=== PATIENT | female | born 1960 | race African-American/Black ===

== ENCOUNTER 2022-06-28 18:33 | Inpatient (IN) | payer MEDICARE, MEDICAID ==
[~2022-06-28] VITALS: Ht 167.6 cm; Wt 87.5 kg
[2022-06-28] MEDS ORDERED: SODIUM CHLORIDE 0.9% 1,000 ML IV ONE (19:30)
[2022-06-28 21:01] LABS: LYMPHOCYTES % 8.1 % (20.0-50.0); MEAN CORPUSCULAR HEMOGLOBIN 33.5 pg (28.0-32.0); MEAN PLATELET VOLUME 8.2 fl (7.4-10.4); MONOCYTES % 4.2 % (2.0-8.0); NEUTROPHILS % 87.7 % (40.0-76.0); PLATELET 129 x1000/uL (130-400); RED BLOOD CELL COUNT 1.54 mill/uL (4.2-5.4); RED CELL DISTRIBUTION WIDTH 28.2 % (11.6-14.6)
[2022-06-28 21:06] LABS: CHLORIDE 102 mEq/L (98-107)
[2022-06-28 21:10] LABS: INR 1.3; PROTHROMBIN TIME 13.9 sec (9.6-11.0)
[2022-06-28 21:29] LABS: HEMOGLOBIN. 5.2 g/dL (12.0-16.0)
[2022-06-28 21:46] LABS: PLATELET ESTIMATE SLIGHTLY DECREASED
[2022-06-29 08:31] LABS: CLARITY URINE CLEAR (CLEAR); COLOR URINE YELLOW (YELLOW); KETONES URINE TRACE (NEGATIVE); LEUKOCYTE ESTERASE URINE 2+ (NEGATIVE); NITRITE URINE NEGATIVE (NEGATIVE); OCCULT BLOOD URINE NEGATIVE (NEGATIVE); PROTEIN URINE NEGATIVE (NEGATIVE); SPECIFIC GRAVITY URINE 1.023 (1.005-1.030); UROBILINOGEN URINE 0.2 E.U./dL (0.2-1.0)
[2022-06-29] MEDS ORDERED: ONDANSETRON HCL 4MG/2ML INJ IV PRN (09:00)
[2022-06-29] MEDS ORDERED: PANTOPRAZOLE SODIUM 40 MG/VIAL IV SCH (10:45)
[2022-06-29] MEDS ORDERED: DIPHENHYDRAMINE 25MG CAPSULE PO PRN (11:15)
[2022-06-29] MEDS ORDERED: CEFTRIAXONE 1 G PREMIX 50 ML IV SCH (11:30)
[2022-06-29] MEDS: PANTOPRAZOLE SODIUM 40 MG/VIAL IV SCH ×2 (12:59→20:53)
[2022-06-29] MEDS ORDERED: LEVETIRACETAM 500MG PREMIX 100 ML IV SCH (13:00)
[2022-06-29 15:20] VITALS: BP 119/64
[2022-06-29 15:23] VITALS: BP 119/64
[2022-06-29] MEDS: DEXT 5%/0.9% NACL 1,000 ML IV SCH ×2 (16:00→22:53)
[2022-06-29 16:20] LABS: MEAN CORPUSCULAR HEMOGLOBIN 32.7 pg (28.0-32.0); MEAN CORPUSCULAR VOLUME 94.3 fL (81.0-99.0); PLATELET 113 x1000/uL (130-400); RED BLOOD CELL COUNT 1.74 mill/uL (4.2-5.4); RED CELL DISTRIBUTION WIDTH 22.8 % (11.6-14.6)
[2022-06-29 16:37] LABS: HEMATOCRIT. 16.4 % (36.0-48.0); HEMOGLOBIN. 5.7 g/dL (12.0-16.0)
[2022-06-29] MEDS: LEVETIRACETAM 500MG TABLET PO SCH ×2 (17:22→22:53)
[2022-06-29 17:46] LABS: PLATELET ESTIMATE DECREASED
[2022-06-29] MEDS ORDERED: FLUO90CA4 PO (17:48)
[2022-06-29] MEDS ORDERED: CARV6.2548 PO (17:48)
[2022-06-29] MEDS ORDERED: LEVE1000 PO (17:48)
[2022-06-29] MEDS ORDERED: PROC-1 PO (17:48)
[2022-06-29] MEDS ORDERED: RISP1SOL4 PO (17:48)
[2022-06-29] MEDS ORDERED: ASPI-1406 PO (17:48)
[2022-06-29] MEDS ORDERED: TUCA150T PO (17:48)
[2022-06-29] MEDS ORDERED: SIMV5TAB58 PO (17:48)
[2022-06-29 18:41] VITALS: BP 109/59
[2022-06-29 18:52] LABS: CHLORIDE 104 mEq/L (98-107)
[2022-06-29 18:56] LABS: TOTAL IRON BINDING CAPACITY 222 ug/dL (250-450)
[2022-06-29 18:58] VITALS: BP 108/62
[2022-06-29 20:00] VITALS: BP 108/61
[2022-06-30] VITALS (11 sets, daily range): BP systolic 98–120; BP diastolic 53–83
[2022-06-30] MEDS ORDERED: DEXT 5%/0.9% NACL 1,000 ML IV SCH (00:01)
[2022-06-30 00:51] LABS: HEMATOCRIT 19.1 % (36.0-48.0); HEMOGLOBIN 6.5 g/dL (12.0-16.0)
[2022-06-30 04:01] LABS: MEAN CORPUSCULAR HEMOGLOBIN 31.6 pg (28.0-32.0); MEAN CORPUSCULAR VOLUME 92.5 fL (81.0-99.0); MEAN PLATELET VOLUME 7.8 fl (7.4-10.4); PLATELET 102 x1000/uL (130-400); RED BLOOD CELL COUNT 1.97 mill/uL (4.2-5.4); RED CELL DISTRIBUTION WIDTH 18.9 % (11.6-14.6)
[2022-06-30 04:14] LABS: CHLORIDE 106 mEq/L (98-107)
[2022-06-30 04:17] LABS: INR 1.3; PROTHROMBIN TIME 13.8 sec (9.6-11.0)
[2022-06-30 04:19] LABS: HEMATOCRIT. 18.3 % (36.0-48.0); HEMOGLOBIN. 6.2 g/dL (12.0-16.0)
[2022-06-30 07:31] LABS: PLATELET ESTIMATE DECREASED
[2022-06-30] MEDS: PANTOPRAZOLE SODIUM 40 MG/VIAL IV SCH ×2 (08:54→20:33)
[2022-06-30] MEDS: FOLIC ACID 1MG TABLET PO SCH (08:56)
[2022-06-30] MEDS: LEVETIRACETAM 500MG TABLET PO SCH ×2 (08:56→20:28)
[2022-06-30 08:58] LABS: HEMATOCRIT 21.2 % (36.0-48.0); HEMOGLOBIN 7.2 g/dL (12.0-16.0)
[2022-06-30] MEDS: DEXT 5%/0.9% NACL 1,000 ML IV SCH ×2 (10:31→19:15)
[2022-06-30] MEDS ORDERED: MIDAZOLAM HCL 2 MG/2 ML VIAL ONE (12:36)
[2022-06-30] MEDS ORDERED: FENTANYL CITRATE/PF 50MCG/ML 2ML VIAL ONE (12:36)
[2022-06-30] MEDS ORDERED: CEFTRIAXONE 1,000 MG in DEXTROSE 5% WATER 50 ML IV SCH (15:00)
[2022-06-30] MEDS: SUCRALFATE 1G TABLET PO SCH ×2 (17:44→20:35)
[2022-06-30 21:25] LABS: HEMOGLOBIN 6.8 g/dL (12.0-16.0)
[2022-06-30 21:26] LABS: HEMATOCRIT 20.4 % (36.0-48.0)
[2022-07-01] VITALS (9 sets, daily range): BP systolic 106–129; BP diastolic 53–69
[2022-07-01] MEDS: DEXT 5%/0.9% NACL 1,000 ML IV SCH ×2 (04:50→14:59)
[2022-07-01] MEDS: FOLIC ACID 1MG TABLET PO SCH (09:16)
[2022-07-01] MEDS: LEVETIRACETAM 500MG TABLET PO SCH ×2 (09:16→20:00)
[2022-07-01] MEDS: SUCRALFATE 1G TABLET PO SCH ×4 (09:16→20:00)
[2022-07-01] MEDS: PANTOPRAZOLE SODIUM 40 MG/VIAL IV SCH ×2 (09:16→19:59)
[2022-07-01 10:25] LABS: HEMATOCRIT 24.3 % (36.0-48.0); HEMOGLOBIN 8.1 g/dL (12.0-16.0)
[2022-07-01] MEDS ORDERED: CEFTRIAXONE 1,000 MG in DEXTROSE 5% WATER 50 ML IV SCH (14:00)
[2022-07-01 19:54] LABS: HEMATOCRIT 27.6 % (36.0-48.0); HEMOGLOBIN 8.6 g/dL (12.0-16.0)
[2022-07-02] VITALS (9 sets, daily range): BP systolic 111–152; BP diastolic 63–76
[2022-07-02] MEDS: DEXT 5%/0.9% NACL 1,000 ML IV SCH ×3 (01:15→20:18)
[2022-07-02] MEDS: ACETAMINOPHEN 325MG TABLET PO PRN ×2 (01:29→19:39)
[2022-07-02 01:32] LABS: HEMOGLOBIN 7.1 g/dL (12.0-16.0)
[2022-07-02 07:33] LABS: MEAN CORPUSCULAR VOLUME 93.7 fL (81.0-99.0); MEAN PLATELET VOLUME 8.8 fl (7.4-10.4); PLATELET 61 x1000/uL (130-400); RED CELL DISTRIBUTION WIDTH 16.1 % (11.6-14.6)
[2022-07-02 08:00] LABS: CHLORIDE 109 mEq/L (98-107)
[2022-07-02 08:19] LABS: HEMATOCRIT. 20.6 % (36.0-48.0)
[2022-07-02] MEDS: PANTOPRAZOLE SODIUM 40 MG/VIAL IV SCH ×2 (10:08→20:02)
[2022-07-02] MEDS: FOLIC ACID 1MG TABLET PO SCH (10:09)
[2022-07-02] MEDS: LEVETIRACETAM 500MG TABLET PO SCH ×2 (10:09→20:02)
[2022-07-02] MEDS: SUCRALFATE 1G TABLET PO SCH ×4 (10:09→20:02)
[2022-07-02 10:37] LABS: PLATELET ESTIMATE DECREASED
[2022-07-02 11:36] LABS: HEMOGLOBIN 7.1 g/dL (12.0-16.0)
[2022-07-02 11:49] LABS: HEMATOCRIT 20.8 % (36.0-48.0)
[2022-07-02] MEDS: LEVOFLOXACIN 250MG TABLET PO SCH (13:27)
[2022-07-02] MEDS ORDERED: POTASSIUM CHLORIDE 20MEQ TABLET SR PO NR (14:15)
[2022-07-02 21:23] LABS: HEMATOCRIT 26.6 % (36.0-48.0); HEMOGLOBIN 9.1 g/dL (12.0-16.0)
[2022-07-03] VITALS: BP 153/79
[2022-07-03 04:00] VITALS: BP 149/74
[2022-07-03] MEDS: DEXT 5%/0.9% NACL 1,000 ML IV SCH ×2 (06:36→17:40)
[2022-07-03 06:57] LABS: BASOPHILS % 0.1 % (0.0-2.0); EOSINOPHILS % 0.1 % (0.0-5.0); HEMATOCRIT. 28.4 % (36.0-48.0); HEMOGLOBIN. 9.8 g/dL (12.0-16.0); LYMPHOCYTES % 8.4 % (20.0-50.0); MEAN CORPUSCULAR HEMOGLOBIN 31.5 pg (28.0-32.0); MEAN CORPUSCULAR VOLUME 91.3 fL (81.0-99.0); MEAN PLATELET VOLUME 8.7 fl (7.4-10.4); MONOCYTES % 6.8 % (2.0-8.0); NEUTROPHILS % 84.6 % (40.0-76.0); PLATELET 71 x1000/uL (130-400); RED BLOOD CELL COUNT 3.12 mill/uL (4.2-5.4); RED CELL DISTRIBUTION WIDTH 16.5 % (11.6-14.6)
[2022-07-03 07:22] LABS: CHLORIDE 109 mEq/L (98-107)
[2022-07-03 08:00] VITALS: BP 137/78
[2022-07-03] MEDS ORDERED: NON FORMULARY PATIENT HOME MED PO SCH ×2 (09:00)
[2022-07-03] MEDS: [UNRECOGNIZED DRUG - OTHER] PO SCH ×2 (09:00→20:26)
[2022-07-03] MEDS ORDERED: LEVETIRACETAM 500MG TABLET PO SCH (09:00)
[2022-07-03] MEDS: SUCRALFATE 1G TABLET PO SCH ×4 (09:34→20:24)
[2022-07-03] MEDS: LEVETIRACETAM 500MG TABLET PO SCH ×2 (09:34→20:25)
[2022-07-03] MEDS: PROCHLORPERAZINE MALEATE 10MG TABLET PO SCH (09:34)
[2022-07-03] MEDS: PANTOPRAZOLE SODIUM 40 MG/VIAL IV SCH ×2 (09:34→20:26)
[2022-07-03] MEDS: RISPERIDONE 1MG TABLET PO SCH (09:35)
[2022-07-03] MEDS: FOLIC ACID 1MG TABLET PO SCH (09:35)
[2022-07-03] MEDS: FLUOXETINE HCL 10 MG CAPSULE PO SCH (09:35)
[2022-07-03] MEDS: CARVEDILOL 6.25 MG TABLET PO SCH ×2 (09:35→20:25)
[2022-07-03] MEDS: ASPIRIN 81MG TABLET PO SCH (09:36)
[2022-07-03] MEDS ORDERED: POTASSIUM CHLORIDE 20MEQ TABLET SR PO NR (10:30)
[2022-07-03] MEDS: LEVOFLOXACIN 250MG TABLET PO SCH (10:54)
[2022-07-03 12:00] VITALS: BP 166/91
[2022-07-03 16:00] VITALS: BP 155/89
[2022-07-03 20:00] VITALS: BP 145/90
[2022-07-03] MEDS: ATORVASTATIN CALCIUM 10MG TABLET PO SCH (20:24)
[2022-07-04 00:06] VITALS: BP 154/83
[2022-07-04 04:00] VITALS: BP 147/79
[2022-07-04] MEDS: DEXT 5%/0.9% NACL 1,000 ML IV SCH ×2 (05:14→13:15)
[2022-07-04 06:55] LABS: BASOPHILS % 0.2 % (0.0-2.0); EOSINOPHILS % 0.1 % (0.0-5.0); HEMATOCRIT. 26.8 % (36.0-48.0); HEMOGLOBIN. 9.3 g/dL (12.0-16.0); LYMPHOCYTES % 10.6 % (20.0-50.0); MEAN CORPUSCULAR HEMOGLOBIN 31.8 pg (28.0-32.0); MEAN CORPUSCULAR VOLUME 91.4 fL (81.0-99.0); MEAN PLATELET VOLUME 8.3 fl (7.4-10.4); MONOCYTES % 10.6 % (2.0-8.0); NEUTROPHILS % 78.5 % (40.0-76.0); PLATELET 90 x1000/uL (130-400); RED BLOOD CELL COUNT 2.93 mill/uL (4.2-5.4); RED CELL DISTRIBUTION WIDTH 16.9 % (11.6-14.6)
[2022-07-04 08:00] VITALS: BP 148/77
[2022-07-04] MEDS: PANTOPRAZOLE SODIUM 40 MG/VIAL IV SCH ×2 (08:56→20:22)
[2022-07-04] MEDS: ASPIRIN 81MG TABLET PO SCH (08:56)
[2022-07-04] MEDS: CARVEDILOL 6.25 MG TABLET PO SCH ×2 (08:56→20:23)
[2022-07-04] MEDS: RISPERIDONE 1MG TABLET PO SCH (08:56)
[2022-07-04] MEDS: PROCHLORPERAZINE MALEATE 10MG TABLET PO SCH (08:56)
[2022-07-04] MEDS: FOLIC ACID 1MG TABLET PO SCH (08:56)
[2022-07-04] MEDS: SUCRALFATE 1G TABLET PO SCH ×4 (08:56→20:23)
[2022-07-04] MEDS: FLUOXETINE HCL 10 MG CAPSULE PO SCH (08:56)
[2022-07-04] MEDS: LEVETIRACETAM 500MG TABLET PO SCH ×2 (08:56→20:22)
[2022-07-04] MEDS: [UNRECOGNIZED DRUG - OTHER] PO SCH ×2 (08:57→20:24)
[2022-07-04 10:27] LABS: CHLORIDE 111 mEq/L (98-107)
[2022-07-04 12:00] VITALS: BP 154/86
[2022-07-04] MEDS: LEVOFLOXACIN 250MG TABLET PO SCH (13:22)
[2022-07-04] MEDS ORDERED: POTASSIUM CHLORIDE 20MEQ TABLET SR PO NR (15:45)
[2022-07-04 16:00] VITALS: BP 143/79
[2022-07-04 20:00] VITALS: BP 147/73
[2022-07-04] MEDS: ATORVASTATIN CALCIUM 10MG TABLET PO SCH (20:23)
[2022-07-05] VITALS: BP 135/67
[2022-07-05] MEDS: DEXT 5%/0.9% NACL 1,000 ML IV SCH ×3 (00:18→20:24)
[2022-07-05 04:00] VITALS: BP 144/73
[2022-07-05 07:20] LABS: BASOPHILS % 0.3 % (0.0-2.0); EOSINOPHILS % 0.2 % (0.0-5.0); HEMATOCRIT. 24.7 % (36.0-48.0); HEMOGLOBIN. 8.5 g/dL (12.0-16.0); LYMPHOCYTES % 13.3 % (20.0-50.0); MEAN CORPUSCULAR HEMOGLOBIN 31.6 pg (28.0-32.0); MEAN CORPUSCULAR VOLUME 92.2 fL (81.0-99.0); MEAN PLATELET VOLUME 7.9 fl (7.4-10.4); NEUTROPHILS % 74.2 % (40.0-76.0); PLATELET 90 x1000/uL (130-400); RED BLOOD CELL COUNT 2.68 mill/uL (4.2-5.4); RED CELL DISTRIBUTION WIDTH 17.1 % (11.6-14.6)
[2022-07-05 07:53] LABS: CHLORIDE 110 mEq/L (98-107)
[2022-07-05 08:00] VITALS: BP 153/60
[2022-07-05] MEDS: PANTOPRAZOLE SODIUM 40 MG/VIAL IV SCH ×2 (09:14→20:25)
[2022-07-05] MEDS: SUCRALFATE 1G TABLET PO SCH ×4 (09:18→20:25)
[2022-07-05] MEDS: RISPERIDONE 1MG TABLET PO SCH (09:18)
[2022-07-05] MEDS: FLUOXETINE HCL 10 MG CAPSULE PO SCH (09:18)
[2022-07-05] MEDS: FOLIC ACID 1MG TABLET PO SCH (09:18)
[2022-07-05] MEDS: LEVETIRACETAM 500MG TABLET PO SCH ×2 (09:18→20:25)
[2022-07-05] MEDS: PROCHLORPERAZINE MALEATE 10MG TABLET PO SCH (09:18)
[2022-07-05] MEDS: ASPIRIN 81MG TABLET PO SCH (09:19)
[2022-07-05] MEDS: CARVEDILOL 6.25 MG TABLET PO SCH ×2 (09:19→20:25)
[2022-07-05] MEDS: [UNRECOGNIZED DRUG - OTHER] PO SCH ×2 (09:19→20:25)
[2022-07-05 12:00] VITALS: BP 134/67
[2022-07-05] MEDS: LEVOFLOXACIN 250MG TABLET PO SCH (13:37)
[2022-07-05 16:00] VITALS: BP 151/69
[2022-07-05 20:00] VITALS: BP 142/89
[2022-07-05] MEDS: ATORVASTATIN CALCIUM 10MG TABLET PO SCH (20:25)
[2022-07-06] VITALS: BP 151/80
[2022-07-06 04:00] VITALS: BP 150/79
[2022-07-06] MEDS: DEXT 5%/0.9% NACL 1,000 ML IV SCH ×2 (05:34→15:27)
[2022-07-06 06:41] LABS: BASOPHILS % 0.3 % (0.0-2.0); EOSINOPHILS % 0.4 % (0.0-5.0); HEMATOCRIT. 26.7 % (36.0-48.0); HEMOGLOBIN. 9.1 g/dL (12.0-16.0); LYMPHOCYTES % 9.8 % (20.0-50.0); MEAN CORPUSCULAR HEMOGLOBIN 31.8 pg (28.0-32.0); MEAN CORPUSCULAR VOLUME 93.4 fL (81.0-99.0); MEAN PLATELET VOLUME 8.1 fl (7.4-10.4); MONOCYTES % 11.4 % (2.0-8.0); NEUTROPHILS % 78.1 % (40.0-76.0); PLATELET 96 x1000/uL (130-400); RED BLOOD CELL COUNT 2.86 mill/uL (4.2-5.4); RED CELL DISTRIBUTION WIDTH 17.1 % (11.6-14.6)
[2022-07-06 06:43] LABS: INR 1.3; PARTIAL THROMBOPLASTIN TIME 22.6 sec (23.4-31.0); PROTHROMBIN TIME 13.7 sec (9.6-11.0)
[2022-07-06 07:15] LABS: CHLORIDE 115 mEq/L (98-107)
[2022-07-06 08:00] VITALS: BP 130/79
[2022-07-06] MEDS: PROCHLORPERAZINE MALEATE 10MG TABLET PO SCH (08:37)
[2022-07-06] MEDS: LEVETIRACETAM 500MG TABLET PO SCH ×2 (08:37→22:35)
[2022-07-06] MEDS: PANTOPRAZOLE SODIUM 40 MG/VIAL IV SCH ×2 (08:37→22:34)
[2022-07-06] MEDS: FLUOXETINE HCL 10 MG CAPSULE PO SCH (08:37)
[2022-07-06] MEDS: SUCRALFATE 1G TABLET PO SCH ×4 (08:38→22:36)
[2022-07-06] MEDS: RISPERIDONE 1MG TABLET PO SCH (08:38)
[2022-07-06] MEDS: FOLIC ACID 1MG TABLET PO SCH (08:41)
[2022-07-06] MEDS: CARVEDILOL 6.25 MG TABLET PO SCH ×2 (08:44→22:35)
[2022-07-06] MEDS: [UNRECOGNIZED DRUG - OTHER] PO SCH ×2 (08:48→22:35)
[2022-07-06] MEDS ORDERED: PROPOFOL 200MG/20ML VIAL IV ONE (11:48)
[2022-07-06] MEDS ORDERED: LEVOFLOXACIN 500MG PREMIX 100 ML IV ONE (11:52)
[2022-07-06] MEDS ORDERED: ONDANSETRON HCL 4MG/2ML INJ ONE (12:03)
[2022-07-06] MEDS ORDERED: DEXAMETHASONE 4MG/ML 1ML VIAL ONE (12:03)
[2022-07-06 13:00] VITALS: BP 135/80
[2022-07-06] MEDS: LEVOFLOXACIN 250MG TABLET PO SCH (14:00)
[2022-07-06 20:00] VITALS: BP 110/59
[2022-07-06] MEDS: ATORVASTATIN CALCIUM 10MG TABLET PO SCH (22:35)
[2022-07-07] VITALS: BP 121/68
[2022-07-07] MEDS: DEXT 5%/0.9% NACL 1,000 ML IV SCH ×3 (02:45→21:15)
[2022-07-07 04:00] VITALS: BP 137/76
[2022-07-07 08:00] VITALS: BP 129/79
[2022-07-07] MEDS ORDERED: LIDOCAINE HCL 1% 10 MG/ML 10ML VIAL ONE (09:01)
[2022-07-07] MEDS: PANTOPRAZOLE SODIUM 40 MG/VIAL IV SCH ×2 (10:05→21:04)
[2022-07-07] MEDS: LEVETIRACETAM 500MG TABLET PO SCH ×2 (10:05→21:03)
[2022-07-07] MEDS: [UNRECOGNIZED DRUG - OTHER] PO SCH ×2 (10:05→21:05)
[2022-07-07] MEDS: SUCRALFATE 1G TABLET PO SCH ×4 (10:05→21:04)
[2022-07-07] MEDS: CARVEDILOL 6.25 MG TABLET PO SCH ×2 (10:05→21:04)
[2022-07-07] MEDS: FOLIC ACID 1MG TABLET PO SCH (10:05)
[2022-07-07] MEDS: FLUOXETINE HCL 10 MG CAPSULE PO SCH (10:05)
[2022-07-07] MEDS: RISPERIDONE 1MG TABLET PO SCH (10:06)
[2022-07-07 12:00] VITALS: BP 167/83
[2022-07-07] MEDS: ACETAMINOPHEN 325MG TABLET PO PRN (12:57)
[2022-07-07] MEDS: LEVOFLOXACIN 250MG TABLET PO SCH (12:57)
[2022-07-07 16:00] VITALS: BP 138/72
[2022-07-07 20:00] VITALS: BP 105/69
[2022-07-07] MEDS: ATORVASTATIN CALCIUM 10MG TABLET PO SCH (21:04)
[2022-07-08] VITALS: BP 129/75
[2022-07-08] MEDS: DEXT 5%/0.9% NACL 1,000 ML IV SCH ×2 (07:15→17:15)
[2022-07-08] MEDS: SUCRALFATE 1G TABLET PO SCH ×4 (07:20→20:57)
[2022-07-08] MEDS: [UNRECOGNIZED DRUG - OTHER] PO SCH ×2 (09:00→21:06)
[2022-07-08] MEDS: RISPERIDONE 1MG TABLET PO SCH (09:00)
[2022-07-08] MEDS: CARVEDILOL 6.25 MG TABLET PO SCH ×2 (09:00→21:03)
[2022-07-08] MEDS: FLUOXETINE HCL 10 MG CAPSULE PO SCH (09:00)
[2022-07-08] MEDS: LEVETIRACETAM 500MG TABLET PO SCH ×2 (09:00→20:57)
[2022-07-08] MEDS: FOLIC ACID 1MG TABLET PO SCH (09:00)
[2022-07-08] MEDS: PANTOPRAZOLE SODIUM 40 MG/VIAL IV SCH ×2 (09:00→21:07)
[2022-07-08 09:10] LABS: BASOPHILS % 0.1 % (0.0-2.0); EOSINOPHILS % 0.1 % (0.0-5.0); HEMATOCRIT. 27.6 % (36.0-48.0); HEMOGLOBIN. 9.4 g/dL (12.0-16.0); LYMPHOCYTES % 8.8 % (20.0-50.0); MEAN CORPUSCULAR HEMOGLOBIN 31.6 pg (28.0-32.0); MEAN CORPUSCULAR VOLUME 92.8 fL (81.0-99.0); MEAN PLATELET VOLUME 8.3 fl (7.4-10.4); MONOCYTES % 8.5 % (2.0-8.0); NEUTROPHILS % 82.5 % (40.0-76.0); PLATELET 114 x1000/uL (130-400); RED BLOOD CELL COUNT 2.97 mill/uL (4.2-5.4); RED CELL DISTRIBUTION WIDTH 19.8 % (11.6-14.6)
[2022-07-08 09:33] LABS: CHLORIDE 113 mEq/L (98-107)
[2022-07-08] MEDS ORDERED: POTASSIUM CHLORIDE INJ 40 MEQ in DEXT 5% WATER 250 ML IV ONE (10:00)
[2022-07-08] MEDS ORDERED: POTASSIUM CHLORIDE 20MEQ TABLET SR PO NR ×2 (10:00→13:00)
[2022-07-08] MEDS ORDERED: KCL 20MEQ/100ML X 2 FOR TOTAL KCL 40MEQ/200ML IV SCH (11:00)
[2022-07-08] MEDS: ACETAMINOPHEN 325MG TABLET PO PRN (16:55)
[2022-07-08 20:00] VITALS: BP 124/74
[2022-07-08] MEDS: ATORVASTATIN CALCIUM 10MG TABLET PO SCH (21:04)
[2022-07-09] VITALS: BP 137/70
[2022-07-09] MEDS: DEXT 5%/0.9% NACL 1,000 ML IV SCH ×3 (03:15→23:05)
[2022-07-09 04:00] VITALS: BP 143/69
[2022-07-09 07:31] LABS: BASOPHILS % 0.3 % (0.0-2.0); EOSINOPHILS % 0.4 % (0.0-5.0); HEMATOCRIT. 25.5 % (36.0-48.0); HEMOGLOBIN. 8.8 g/dL (12.0-16.0); LYMPHOCYTES % 9.9 % (20.0-50.0); MEAN CORPUSCULAR HEMOGLOBIN 31.7 pg (28.0-32.0); MEAN CORPUSCULAR VOLUME 92.5 fL (81.0-99.0); MEAN PLATELET VOLUME 8.4 fl (7.4-10.4); MONOCYTES % 10.6 % (2.0-8.0); NEUTROPHILS % 78.8 % (40.0-76.0); PLATELET 100 x1000/uL (130-400); RED BLOOD CELL COUNT 2.76 mill/uL (4.2-5.4); RED CELL DISTRIBUTION WIDTH 19.8 % (11.6-14.6)
[2022-07-09 07:33] LABS: CHLORIDE 118 mEq/L (98-107)
[2022-07-09 08:00] VITALS: BP 136/63
[2022-07-09] MEDS ORDERED: POTASSIUM CHLORIDE 20MEQ TABLET SR PO NR ×2 (08:15→12:00)
[2022-07-09] MEDS: PROCHLORPERAZINE MALEATE 10MG TABLET PO SCH ×2 (09:00→10:07)
[2022-07-09] MEDS: FOLIC ACID 1MG TABLET PO SCH (09:00)
[2022-07-09] MEDS: SUCRALFATE 1G TABLET PO SCH ×4 (10:08→22:03)
[2022-07-09] MEDS: PANTOPRAZOLE SODIUM 40 MG/VIAL IV SCH ×2 (10:09→22:02)
[2022-07-09] MEDS: CARVEDILOL 6.25 MG TABLET PO SCH ×2 (10:09→22:04)
[2022-07-09] MEDS: FLUOXETINE HCL 10 MG CAPSULE PO SCH (10:11)
[2022-07-09] MEDS: LEVETIRACETAM 500MG TABLET PO SCH ×2 (10:11→22:03)
[2022-07-09] MEDS: [UNRECOGNIZED DRUG - OTHER] PO SCH ×2 (10:11→21:00)
[2022-07-09] MEDS: ACETAMINOPHEN 325MG TABLET PO PRN ×2 (10:12→19:11)
[2022-07-09] MEDS: RISPERIDONE 1MG TABLET PO SCH (10:12)
[2022-07-09 12:00] VITALS: BP 174/70
[2022-07-09 16:00] VITALS: BP 112/57
[2022-07-09 20:00] VITALS: BP 126/66
[2022-07-09] MEDS: ATORVASTATIN CALCIUM 10MG TABLET PO SCH (22:03)
[2022-07-10] VITALS: BP 121/62
[2022-07-10 04:00] VITALS: BP 118/62
[2022-07-10 08:00] VITALS: BP 137/73
[2022-07-10] MEDS: [UNRECOGNIZED DRUG - OTHER] PO SCH ×2 (09:00→21:00)
[2022-07-10] MEDS: DEXT 5%/0.9% NACL 1,000 ML IV SCH ×2 (09:15→19:15)
[2022-07-10] MEDS: PROCHLORPERAZINE MALEATE 10MG TABLET PO SCH (10:39)
[2022-07-10] MEDS: SUCRALFATE 1G TABLET PO SCH ×4 (10:39→22:09)
[2022-07-10] MEDS: PANTOPRAZOLE SODIUM 40 MG/VIAL IV SCH ×2 (10:39→22:08)
[2022-07-10] MEDS: FOLIC ACID 1MG TABLET PO SCH (10:40)
[2022-07-10] MEDS: CARVEDILOL 6.25 MG TABLET PO SCH ×2 (10:40→22:12)
[2022-07-10] MEDS: LEVETIRACETAM 500MG TABLET PO SCH ×2 (10:40→22:09)
[2022-07-10] MEDS: DEXAMETHASONE 4MG TABLET PO SCH (10:40)
[2022-07-10] MEDS: ACETAMINOPHEN 325MG TABLET PO PRN (10:42)
[2022-07-10] MEDS: RISPERIDONE 1MG TABLET PO SCH (10:42)
[2022-07-10] MEDS: FLUOXETINE HCL 10 MG CAPSULE PO SCH (10:42)
[2022-07-10 12:00] VITALS: BP 119/66
[2022-07-10 14:38] LABS: BASOPHILS % 0.4 % (0.0-2.0); EOSINOPHILS % 0.3 % (0.0-5.0); HEMATOCRIT. 26.2 % (36.0-48.0); HEMOGLOBIN. 8.8 g/dL (12.0-16.0); MEAN CORPUSCULAR HEMOGLOBIN 31.2 pg (28.0-32.0); MEAN CORPUSCULAR VOLUME 92.7 fL (81.0-99.0); MEAN PLATELET VOLUME 8.2 fl (7.4-10.4); MONOCYTES % 13.6 % (2.0-8.0); NEUTROPHILS % 72.7 % (40.0-76.0); PLATELET 98 x1000/uL (130-400); RED BLOOD CELL COUNT 2.82 mill/uL (4.2-5.4); RED CELL DISTRIBUTION WIDTH 20.7 % (11.6-14.6)
[2022-07-10 14:40] LABS: CHLORIDE 108 mEq/L (98-107)
[2022-07-10 16:00] VITALS: BP 124/66
[2022-07-10 20:00] VITALS: BP 151/79
[2022-07-10] MEDS: ATORVASTATIN CALCIUM 10MG TABLET PO SCH (22:10)
[2022-07-11] VITALS (8 sets, daily range): BP systolic 112–143; BP diastolic 56–77
[2022-07-11] MEDS: DEXT 5%/0.9% NACL 1,000 ML IV SCH ×2 (05:02→15:32)
[2022-07-11] MEDS: FOLIC ACID 1MG TABLET PO SCH (08:35)
[2022-07-11] MEDS: LEVETIRACETAM 500MG TABLET PO SCH ×2 (08:35→22:34)
[2022-07-11] MEDS: RISPERIDONE 1MG TABLET PO SCH (08:35)
[2022-07-11] MEDS: PROCHLORPERAZINE MALEATE 10MG TABLET PO SCH (08:35)
[2022-07-11] MEDS: DEXAMETHASONE 4MG TABLET PO SCH (08:36)
[2022-07-11] MEDS: SUCRALFATE 1G TABLET PO SCH ×4 (08:36→22:34)
[2022-07-11] MEDS: CARVEDILOL 6.25 MG TABLET PO SCH ×2 (08:36→22:34)
[2022-07-11] MEDS: FLUOXETINE HCL 10 MG CAPSULE PO SCH (08:36)
[2022-07-11] MEDS: PANTOPRAZOLE SODIUM 40 MG/VIAL IV SCH ×2 (08:37→22:34)
[2022-07-11] MEDS: [UNRECOGNIZED DRUG - OTHER] PO SCH ×2 (08:39→21:00)
[2022-07-11] MEDS ORDERED: POTASSIUM CHLORIDE 20MEQ TABLET SR PO NR (15:00)
[2022-07-11] MEDS: ATORVASTATIN CALCIUM 10MG TABLET PO SCH (22:34)
[2022-07-12] VITALS: BP 145/72
[2022-07-12] MEDS: DEXT 5%/0.9% NACL 1,000 ML IV SCH ×3 (00:30→21:39)
[2022-07-12 04:00] VITALS: BP 142/73
[2022-07-12 08:00] VITALS: BP 140/74
[2022-07-12] MEDS: PROCHLORPERAZINE MALEATE 10MG TABLET PO SCH (09:00)
[2022-07-12] MEDS: [UNRECOGNIZED DRUG - OTHER] PO SCH ×2 (09:00→21:49)
[2022-07-12] MEDS: DEXAMETHASONE 4MG TABLET PO SCH (10:46)
[2022-07-12] MEDS: LEVETIRACETAM 500MG TABLET PO SCH ×2 (10:47→21:38)
[2022-07-12] MEDS: PANTOPRAZOLE SODIUM 40 MG/VIAL IV SCH ×2 (10:47→21:38)
[2022-07-12] MEDS: RISPERIDONE 1MG TABLET PO SCH (10:47)
[2022-07-12] MEDS: FOLIC ACID 1MG TABLET PO SCH (10:47)
[2022-07-12] MEDS: CARVEDILOL 6.25 MG TABLET PO SCH ×2 (10:47→21:38)
[2022-07-12] MEDS: FLUOXETINE HCL 10 MG CAPSULE PO SCH (10:48)
[2022-07-12 12:00] VITALS: BP 124/67
[2022-07-12] MEDS: SUCRALFATE 1G TABLET PO SCH ×3 (12:20→21:38)
[2022-07-12 16:00] VITALS: BP 137/71
[2022-07-12 20:00] VITALS: BP 167/81
[2022-07-12] MEDS: ATORVASTATIN CALCIUM 10MG TABLET PO SCH (21:38)
[2022-07-12] MEDS ORDERED: FUROSEMIDE 20MG/2ML VIAL IVP NR (22:00)
[2022-07-13] VITALS: BP 139/77
[2022-07-13 04:00] VITALS: BP 145/77
[2022-07-13] MEDS: DEXT 5%/0.9% NACL 1,000 ML IV SCH (06:54)
[2022-07-13] MEDS: SUCRALFATE 1G TABLET PO SCH ×4 (06:54→22:04)
[2022-07-13 08:00] VITALS: BP 124/67
[2022-07-13] MEDS: CARVEDILOL 6.25 MG TABLET PO SCH ×2 (08:45→22:04)
[2022-07-13] MEDS: PROCHLORPERAZINE MALEATE 10MG TABLET PO SCH (08:45)
[2022-07-13] MEDS: PANTOPRAZOLE SODIUM 40 MG/VIAL IV SCH ×2 (08:45→22:26)
[2022-07-13] MEDS: [UNRECOGNIZED DRUG - OTHER] PO SCH ×2 (08:46→22:25)
[2022-07-13] MEDS: DEXAMETHASONE 4MG TABLET PO SCH (08:46)
[2022-07-13] MEDS: FLUOXETINE HCL 10 MG CAPSULE PO SCH (08:46)
[2022-07-13] MEDS: LEVETIRACETAM 500MG TABLET PO SCH ×2 (08:46→22:05)
[2022-07-13] MEDS: FOLIC ACID 1MG TABLET PO SCH (08:46)
[2022-07-13] MEDS: RISPERIDONE 1MG TABLET PO SCH (08:46)
[2022-07-13 12:00] VITALS: BP 145/73
[2022-07-13 16:00] VITALS: BP 126/67
[2022-07-13 16:02] LABS: HEMATOCRIT. 25.3 % (36.0-48.0); HEMOGLOBIN. 8.6 g/dL (12.0-16.0); MEAN CORPUSCULAR HEMOGLOBIN 32.7 pg (28.0-32.0); MEAN CORPUSCULAR VOLUME 96.5 fL (81.0-99.0); MEAN PLATELET VOLUME 8.3 fl (7.4-10.4); PLATELET 148 x1000/uL (130-400); RED BLOOD CELL COUNT 2.62 mill/uL (4.2-5.4); RED CELL DISTRIBUTION WIDTH 19.9 % (11.6-14.6)
[2022-07-13 17:40] LABS: CHLORIDE 104 mEq/L (98-107)
[2022-07-13 18:00] LABS: PLATELET ESTIMATE NORMAL
[2022-07-13 20:00] VITALS: BP 146/79
[2022-07-13] MEDS: ATORVASTATIN CALCIUM 10MG TABLET PO SCH (22:05)
[2022-07-14] VITALS: BP 155/81
[2022-07-14 04:00] VITALS: BP 143/81
[2022-07-14] MEDS: SUCRALFATE 1G TABLET PO SCH ×4 (06:34→22:12)
[2022-07-14 08:00] VITALS: BP 129/69
[2022-07-14] MEDS: [UNRECOGNIZED DRUG - OTHER] PO SCH ×2 (09:00→22:13)
[2022-07-14 12:00] VITALS: BP 130/60
[2022-07-14] MEDS: PANTOPRAZOLE SODIUM 40 MG/VIAL IV SCH ×2 (13:36→22:12)
[2022-07-14] MEDS: PROCHLORPERAZINE MALEATE 10MG TABLET PO SCH (13:36)
[2022-07-14] MEDS: LEVETIRACETAM 500MG TABLET PO SCH ×2 (13:37→22:10)
[2022-07-14] MEDS: FOLIC ACID 1MG TABLET PO SCH (13:37)
[2022-07-14] MEDS: CARVEDILOL 6.25 MG TABLET PO SCH ×2 (13:37→22:11)
[2022-07-14] MEDS: DEXAMETHASONE 4MG TABLET PO SCH (13:38)
[2022-07-14] MEDS: FLUOXETINE HCL 10 MG CAPSULE PO SCH (13:38)
[2022-07-14] MEDS: RISPERIDONE 1MG TABLET PO SCH (13:38)
[2022-07-14 16:00] VITALS: BP 135/71
[2022-07-14] MEDS ORDERED: GADOTERATE MEGLUMINE 5 MMOL/10 ML VIAL IV ONE (19:46)
[2022-07-14 20:00] VITALS: BP 145/77
[2022-07-14] MEDS: ATORVASTATIN CALCIUM 10MG TABLET PO SCH (22:10)
[2022-07-15 04:00] VITALS: BP 142/88
[2022-07-15] MEDS: SUCRALFATE 1G TABLET PO SCH (05:56)
[2022-07-15 08:00] VITALS: BP 162/84
[2022-07-15 08:09] VITALS: BP 145/88
[2022-07-15 09:07] LABS: HEMATOCRIT. 25.7 % (36.0-48.0); HEMOGLOBIN. 8.9 g/dL (12.0-16.0); MEAN CORPUSCULAR HEMOGLOBIN 31.8 pg (28.0-32.0); MEAN CORPUSCULAR VOLUME 91.9 fL (81.0-99.0); MEAN PLATELET VOLUME 8.4 fl (7.4-10.4); PLATELET 181 x1000/uL (130-400); RED CELL DISTRIBUTION WIDTH 20.1 % (11.6-14.6)
[2022-07-15 09:34] LABS: CHLORIDE 101 mEq/L (98-107)
[2022-07-15 14:59] LABS: PLATELET ESTIMATE NORMAL
== END 2022-07-15 09:15 | DRG 871 ==
LOC: ER 18:33 → MICUSO 06-29 00:05 → EDBEDREQTM 06-29 00:08 → EDBEDREQ 06-29 00:08 → EDBEDREQDT 06-29 00:08 → 7WST 06-29 15:09 → 6EST 07-06 17:04
PROVIDERS: ADMIT Internal Medicine; ATTEND Internal Medicine
PROC: 30233N1 Transfusion of Nonautologous Red Blood Cells into Peripheral Vein, Percutaneous Approach (ICD-10-PCS; 2022-06-29)
PROC: 0DJ08ZZ Inspection of Upper Intestinal Tract, Via Natural or Artificial Opening Endoscopic (ICD-10-PCS; principal; 2022-06-30)
PROC: 3E0G8GC Introduction of Other Therapeutic Substance into Upper GI, Via Natural or Artificial Opening Endoscopic (ICD-10-PCS; 2022-06-30)
PROC: 0DH68UZ Insertion of Feeding Device into Stomach, Via Natural or Artificial Opening Endoscopic (ICD-10-PCS; 2022-07-06)
PROC: 02HV33Z Insertion of Infusion Device into Superior Vena Cava, Percutaneous Approach (ICD-10-PCS; 2022-07-07)
PROC: B5181ZA Fluoroscopy of Superior Vena Cava using Low Osmolar Contrast, Guidance (ICD-10-PCS; 2022-07-07)
PROC: B548ZZA Ultrasonography of Superior Vena Cava, Guidance (ICD-10-PCS; 2022-07-07)
DX: A41.9 Sepsis, unspecified organism (principal); E43 Unspecified severe protein-calorie malnutrition; K25.4 Chronic or unspecified gastric ulcer with hemorrhage; C77.9 Secondary and unspecified malignant neoplasm of lymph node, unspecified; C78.00 Secondary malignant neoplasm of unspecified lung; C79.31 Secondary malignant neoplasm of brain; R57.9 Shock, unspecified; N39.0 Urinary tract infection, site not specified; N17.9 Acute kidney failure, unspecified; E87.1 Hypo-osmolality and hyponatremia; Z20.822 Contact with and (suspected) exposure to COVID-19; C50.919 Malignant neoplasm of unspecified site of unspecified female breast; I10 Essential (primary) hypertension; D64.9 Anemia, unspecified; E88.09 Other disorders of plasma-protein metabolism, not elsewhere classified; D69.59 Other secondary thrombocytopenia; G90.8 Other disorders of autonomic nervous system; R62.7 Adult failure to thrive; K76.89 Other specified diseases of liver; Z88.0 Allergy status to penicillin; Z88.8 Allergy status to other drugs, medicaments and biological substances; Z68.31 Body mass index [BMI] 31.0-31.9, adult; Z79.82 Long term (current) use of aspirin; Z95.828 Presence of other vascular implants and grafts
CPT/HCPCS: 36415; 36573; 70553; 71045; 74176; 76700; 80048; 80053; 81003; 82140; 82607; 82728; 82746; 82962; 83036; 83540; 83550; 83605; 83735; 84443; 84484; 85014; 85018; 85025; 85044; 86850; 86900; 86920; 87077; 87186; 87426; 93005; 97110; 97162; 97166; 97530; 97535; 99291; A6261; A9577; C1725; C9113; C9803; J0696; J1100; J1940; J1953; J1956; J2250; J2405; J2704; J3010; J3480; J3490; J7030; J7042; J7060; J8540; P9016; Q0163; Q0164